=== PATIENT | male | born 1970 | race Caucasian/White ===

== ENCOUNTER 2016-10-16 07:12 | Emergency (ER) | payer BC ==
[2016-10-16 07:22] VITALS: BP 124/83
--- NOTE | 2016-10-16 07:41 | UC ---
Ear Complaint HPI - HPI Summary HPI Summary: sever left ear x 1 day no fever, no chills, + nasal congestion , no cough , - History of Current Complaint Chief Complaint: UCEar Stated Complaint: RIGHT EAR/RUNNY NOSE Time Seen by Provider: 10/16/16 07:32 Hx Obtained From: Patient Onset/Duration: Gradual Onset, Lasting Days - 1, Still Present Severity Currently: Moderate Aggravating Factors: Nothing Alleviating Factors: Nothing Associated Signs/Symptoms: Positive: Hearing Loss - chronic, URI Symptoms. Negative: Discharge, Foreign Body Sensation, Trauma to Ear, Swelling @ - Allergies/Home Medications Allergies/Adverse Reactions: Allergies Allergy/AdvReac Type Severity Reaction Status Date / Time seasonal Allergy Sneezing Uncoded 10/16/16 07:22 Home Medications: Home Medications Ibuprofen TAB* [Motrin TAB* 800 MG] 800 mg PO ONCE 10/16/16 [History Confirmed 10/16/16] PMH/Surg Hx/FS Hx/Imm Hx - Additional Past Medical History Additional PMH: Meniere's Disease - Surgical History Surgical History: Yes Surgery Procedure, Year, and Place: CATARACT SURGERY - Family History Known Family History: Negative: Diabetes - Social History Alcohol Use: Rare Substance Use Type: None Smoking Status (MU): Never Smoked Tobacco Review of Systems Constitutional: Negative Skin: Negative Eyes: Negative ENT: Ear Ache Respiratory: Negative Cardiovascular: Negative Gastrointestinal: Negative All Other Systems Reviewed And Are Negative: Yes Physical Exam Triage Information Reviewed: Yes Appearance: Well-Appearing, No Pain Distress, Well-Nourished Vital Signs: Initial Vital Signs Temp 98 F 10/16/16 07:14 Pulse 102 10/16/16 07:14 Resp 16 10/16/16 07:14 BP 124/83 10/16/16 07:14 Pulse Ox 100 10/16/16 07:14 Vital Signs Reviewed: Yes Eyes: Positive: Conjunctiva Clear ENT: Positive: Normal ENT inspection, Pharyngeal erythema, Nasal congestion, Nasal drainage, TM bulging - right, TM dull - right, TM red - right Neck exam: Normal Neck: Positive: Supple, Nontender, No Lymphadenopathy Respiratory: Positive: Chest non-tender, Lungs clear, Normal breath sounds Cardiovascular: Positive: RRR, No Murmur, Pulses Normal Ear Complaint Course/Dx - Differential Dx/Diagnosis Provider Diagnoses: otitis media right ear Discharge - Discharge Plan Condition: Stable Disposition: HOME Prescriptions: Amoxicillin (*) [Amoxicillin 875 MG (*)] 875 mg PO BID #20 tab Fluticasone NASAL SPRAY 50MCG* [Flonase NASAL SPRAY 50MCG*] 2 spray BOTH NARES DAILY #1 btl Patient Education Materials: Otitis Media (ED) Referrals: Cindy Acevedo MD [Primary Care Provider] - 7 Days
== END 2016-10-16 07:41 | disposition home or self-care (01) ==
LOC: UCCORT 07:12
DX: H66.91 Otitis media, unspecified, right ear (principal); H81.09 Meniere's disease, unspecified ear; Z98.49 Cataract extraction status, unspecified eye
CPT/HCPCS: 99202; G0463

== ENCOUNTER 2017-05-14 07:02 | Emergency (ER) | payer BC ==
[2017-05-14 07:14] VITALS: BP 128/73
--- NOTE | 2017-05-14 07:29 | UC ---
Respiratory Complaint HPI - HPI Summary HPI Summary: cough x 2 weeks + cold sx for the past 2 weeks productive cough , left side chest pain with cough, deep breathing, and trunk movement, no fever, no chills, no sob - History of Current Complaint Chief Complaint: UCRespiratory Stated Complaint: COUGH/SHARP PAIN IN CHEST Time Seen by Provider: 05/14/17 07:13 Hx Obtained From: Patient Onset/Duration: Gradual Onset, Lasting Weeks - 2, Worse Since - past 2 days Timing: Constant Severity Initially: Moderate Severity Currently: Moderate Character: Cough: Productive Aggravating Factors: Exertion, Deep Breaths Alleviating Factors: Nothing Associated Signs And Symptoms: Positive: Pleuritic Chest Pain, URI, Nasal Congestion. Negative: Dyspnea, Fever, Chills, Wheezing, Hemoptysis, Dizziness, Calf Pain, Calf Swelling, Edema, Hoarseness, Sinus Discomfort - Allergies/Home Medications Allergies/Adverse Reactions: Allergies Allergy/AdvReac Type Severity Reaction Status Date / Time seasonal Allergy Sneezing Uncoded 05/14/17 07:14 Home Medications: Home Medications Meclizine TAB* [Antivert 12.5 TAB*] 25 mg PO TID PRN 05/14/17 [History Confirmed 05/14/17] Pseudoephedrine TAB* [Sudafed TAB*] 30 mg PO ONCE PRN 05/14/17 [History Confirmed 05/14/17] PMH/Surg Hx/FS Hx/Imm Hx - Additional Past Medical History Additional PMH: NARCOLEPSY; hearing loss on right; blindness in left eye; DDD; Meniere's disease - Surgical History Surgical History: Yes Surgery Procedure, Year, and Place: CATARACT SURGERY; radioblation on back - Family History Known Family History: Negative: Diabetes - Social History Alcohol Use: Rare Substance Use Type: None Smoking Status (MU): Never Smoked Tobacco Review of Systems Constitutional: Negative Skin: Negative Eyes: Negative ENT: Nasal Discharge Respiratory: Cough Cardiovascular: Chest Pain Is Patient Immunocompromised?: No All Other Systems Reviewed And Are Negative: Yes Physical Exam Triage Information Reviewed: Yes Appearance: Well-Appearing, No Pain Distress, Well-Nourished Vital Signs: Initial Vital Signs Temp 98.8 F 05/14/17 07:06 Pulse 91 05/14/17 07:06 Resp 18 05/14/17 07:06 BP 128/73 05/14/17 07:06 Pulse Ox 100 05/14/17 07:06 Vital Signs Reviewed: Yes Eyes: Positive: Conjunctiva Clear ENT: Positive: Normal ENT inspection, Hearing grossly normal, Pharynx normal, Nasal congestion Neck: Positive: Supple, Nontender, No Lymphadenopathy Respiratory: Positive: Chest non-tender, Lungs clear, Normal breath sounds, No respiratory distress, Other: - left side chest tenderness Cardiovascular: Positive: RRR, No Murmur, Pulses Normal, Brisk Capillary Refill Abdominal Exam: Normal Skin Exam: Normal Skin: Negative: rashes UC Diagnostic Evaluation - Laboratory O2 Sat by Pulse Oximetry: 100 Respiratory Course/Dx - Differential Dx/Diagnosis Provider Diagnoses: bronchitis. pleuretic chest pain Discharge - Discharge Plan Condition: Stable Disposition: HOME Patient Education Materials: Acute Bronchitis (ED), Thoracic Pain (ED) Referrals: Cindy Acevedo MD [Primary Care Provider] -
--- NOTE | 2017-05-14 08:21 | RAD ---
Indication: Cough. 2 views of the chest including dual energy PA views are reviewed. No mediastinal shift is noted. Heart is of normal size and configuration. Lung gonzalez appear clear. IMPRESSION: No active cardiopulmonary disease is noted.
== END 2017-05-14 08:16 | disposition home or self-care (01) ==
LOC: UCCORT 07:02
DX: J40 Bronchitis, not specified as acute or chronic (principal); R07.81 Pleurodynia
CPT/HCPCS: 71046; 99212; G0463